=== PATIENT | female | born 2000 | race Caucasian/White ===

== ENCOUNTER 2018-04-07 07:45 | Day surgery (SDC) | payer OTHER ==
[~2018-04-07 07:45] MED LIST: GLYCOPYRROLATE 0.4 MG INJ; NEOSTIGMINE 3 MG/3 ML SYRINGE
[2018-04-07] MEDS ORDERED: morphine 2 MG INJ IV (08:00)
[2018-04-07] MEDS ORDERED: IBUPROFEN 800 MG TAB PO (08:00)
[2018-04-07] MEDS ORDERED: POLYMYXIN/BACITRACIN 1L IRRIG (09:25)
[2018-04-07] MEDS ORDERED: POVIDONE IODINE 10% 28.4 GM OINT (09:25)
[2018-04-07] MEDS ORDERED: FENTAnyl 50 MCG/ML VIAL (09:26)
[2018-04-07] MEDS ORDERED: MIDAZOLAM 1 MG/ML 2 ML INJ (09:26)
[2018-04-07] MEDS ORDERED: ROPIVACAINE 0.5 % 30 ML VIAL (09:26)
[2018-04-07] MEDS ORDERED: MEPERIDINE 25 MG INJ IV (09:30)
[2018-04-07] MEDS ORDERED: FENTAnyl 50 MCG/ML VIAL IV ×2 (09:30)
[2018-04-07] MEDS ORDERED: METOCLOPRAMIDE 10 MG INJ IV (09:30)
[2018-04-07] MEDS ORDERED: HYDROmorphONE 1 MG/5 ML IV SYRINGE IV ×3 (09:30)
[2018-04-07] MEDS ORDERED: ALBUTEROL 0.083% (NEB) 2.5 MG/3 ML AMP HHN (09:30)
[2018-04-07] MEDS ORDERED: DIPHENHYDRAMINE 50 MG INJ IV (09:30)
[2018-04-07] MEDS ORDERED: PROPOFOL 20 ML (10:00)
[2018-04-07] MEDS ORDERED: ROCURONIUM 50 MG INJ (10:00)
[2018-04-07] MEDS ORDERED: SUCCINYLCHOLINE CHLORIDE 100 MG/5 ML SYG IV (10:00)
[2018-04-07] MEDS ORDERED: LIDOCAINE 100 MG SYRINGE (10:00)
[2018-04-07] MEDS ORDERED: CEFAZOLIN 1 GM INJ (10:00)
[2018-04-07] MEDS: ROPIVACAINE 0.5 % 30 ML VIAL (10:17)
[2018-04-07] MEDS: ONDANSETRON 4 MG INJ IV (13:05)
== END 2018-04-07 13:59 | disposition home or self-care (01) ==
LOC: SDS 07:45
DX: S83.512D Sprain of anterior cruciate ligament of left knee, subsequent encounter (principal); X58.XXXD Exposure to other specified factors, subsequent encounter
CPT/HCPCS: 29888; 82306; 84703